=== PATIENT | male | born 1990 | race Two or more races ===

== ENCOUNTER 2018-09-05 19:57 | Emergency (ER) | payer BC, OTHER ==
[~2018-09-05] VITALS: Ht 175.3 cm; Wt 104.3 kg
[2018-09-05 20:01] VITALS: BP 155/88
[2018-09-05] MEDS ORDERED: TRAMADOL HCL 50 MG TABLET PO ONE (20:30)
[2018-09-05] MEDS ORDERED: TRAMADOL HCL 50 MG TABLET ONE (20:43)
== END 2018-09-05 21:13 | disposition home or self-care (01) ==
LOC: ER 20:08
DX: M77.9 Enthesopathy, unspecified (principal)
CPT/HCPCS: 93971-TC

== ENCOUNTER 2018-10-28 10:14 | Emergency (ER) | payer BC, OTHER ==
[~2018-10-28] VITALS: Ht 175.3 cm; Wt 104.3 kg
[2018-10-28] MEDS ORDERED: LIDOCAINE MPF 1%-EPI 1:200,000 30 ML VIAL IJ ONE (10:32)
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
[2018-10-28 12:48] VITALS: BP 135/99
--- NOTE | 2018-10-28 12:49 | NUR ---
Patient discharged to home in stable condition. Written and verbal after care instructions given. Patient verbalizes understanding of instruction. Prescription given.
== END 2018-10-28 12:49 | disposition home or self-care (01) ==
LOC: ER 10:17
DX: S01.511A Laceration without foreign body of lip, initial encounter (principal); M25.561 Pain in right knee; R51 Headache; Y04.0XXA Assault by unarmed brawl or fight, initial encounter; Y93.89 Activity, other specified; Y92.89 Other specified places as the place of occurrence of the external cause; Y99.8 Other external cause status
CPT/HCPCS: 12011; 70450; 73564; 99284; A6403 ×2; J3490